=== PATIENT | female | born 1945 ===

== ENCOUNTER 2021-07-29 06:00 | Day surgery (SDC) | payer OTHER ==
[~2021-07-29 06:00] MED LIST: ADULT LOW DOSE81 M1 PO; CRESTOR20 MG PO; GABAPENTIN100 MG; METFORMIN HCL500 M3 PO; NORVASC5 MG PO; PANTOPRAZOLE SO20 MG PO; TOPROL XL25 M1 PO
== END 2021-07-29 10:15 | disposition home or self-care (01) ==
LOC: CIR.AMB 06:00
PROVIDERS: ATTEND Orthopaedic Surgery Hand Surgery
DX: M65.321 Trigger finger, right index finger (principal); M65.341 Trigger finger, right ring finger; M65.841 Other synovitis and tenosynovitis, right hand